=== PATIENT | female | born 1955 | race Caucasian/White ===

== ENCOUNTER → 2017-07-20 | Outpatient (CLI) | payer OTHER ==
--- NOTE | 2017-07-20 13:23 | US ---
EXAMINATION TYPE: US thyroid st tissue head/neck DATE OF EXAM: 07/20/2017 COMPARISON: Prior thyroid ultrasound November 17, 2009 CLINICAL HISTORY: E11.65 Type 2 diabetes, E04.2. Hyperglycemia GLAND SIZE: Right Lobe: 5.8 x 2.4 x 2.3 cm Overall Parenchyma: heterogenous Left Lobe: 5.7 x 2.8 x 2.6 cm Overall Parenchyma: heterogeneous Isthmus Thickness: 0.8 cm NODULES RIGHT: # of nodules measured on right: 3 1. 3.0 X 2.0 x 2.1 cm isoechoic mixed nodule at the lower pole with poorly defined margins; . This nodule is wider than tall and shows intranodular vascularity. Prior size: 2.2cm 2. 1.5 X 1.5 x 0.9 cm isoechoic mixed nodule at the mid pole with poorly defined margins; . This no dule is and shows intranodular vascularity. Prior size: Not measured 3. 1.3 X 1.3 x 0.9 cm isoechoic mixed nodule at the mid, medial pole with well-defined margins; . T his nodule is wider than tall and shows no intranodular vascularity. Prior size: Not measured LEFT: # of nodules measured on left: 1 1. 4.1 X 4.1 x 2.9 cm isoechoic mixed nodule at the lower pole with poorly defined margins; . This nodule is wider than tall and shows intranodular vascularity. Prior size: 4.1 cm ISTHMUS: # of nodules measured in the isthmus: 0 Bilateral neck scanned, no evidence of lymphadenopathy. Heterogeneous enlarged thyroid with largest nodules felt grossly stable in appearance from prior stud y. IMPRESSION: Redemonstration of heterogeneous enlarged thyroid with scattered nodules, dominant nodules are felt s table from prior accounting for technical differences.
[2017-07-20 13:50] LABS: T4, Free (Free Thyroxine) 1.36 ng/dL (0.78-2.19)
== END | disposition home or self-care (01) ==
LOC: RADUSWWP 12:15
PROVIDERS: ATTEND Internal Medicine Endocrinology, Diabetes & Metabolism
DX: E04.2 Nontoxic multinodular goiter (principal); E11.65 Type 2 diabetes mellitus with hyperglycemia
CPT/HCPCS: 36415; 76536; 84439; 84443; 84480

== ENCOUNTER → 2017-10-19 | Outpatient (CLI) | payer OTHER ==
--- NOTE | 2017-10-19 09:22 | CT ---
EXAMINATION TYPE: CT soft tissue neck wo con DATE OF EXAM: 10/19/2017 COMPARISON: NONE HISTORY: Non toxic multinodular goiter CT DLP: 851.00 mGycm CONTRAST: Patient injected with 0 mL of Isovue 300. TECHNIQUE: Axial images at 3 mm thick sections. Reconstructed images in the coronal plane and sagitt al plane are reviewed. FINDINGS: Limited CT sections are obtained the lung apices. The lung apices appear clear. CT neck: The torus tubarius and fossa of Rosenmuller are normal. Blade Worker spaces are normal. Para nasal sinuses and mastoid air cells are clear. Parotid glands appear normal and symmetrical. Submandibular glands, are normal. Parapharyngeal spac es are normal. No suspicious adenopathy is evident. The hypopharynx appears within normal limits. There is subtle asymmetry within the level of the vocal cord with slight bulging on the right compare d to left. This could be related to mild asymmetry within the Gantry. Consider direct visualization. Series 3 image 43. Thyroid is enlarged. There are scattered calcifications within the left lobe of the thyroid. There is some mild right tracheal deviation. No tracheal stenosis is evident. Degenerative changes are within the cervical spine. Lung apices within the [id number] are clear. T here is some mild prominence of the ascending thoracic aorta at the level of the aortic arch with a t ransverse dimension of 3.7 cm. IMPRESSIONS: 1. Prominent thyroid may be causing mild right tracheal deviation. 2. Subtle asymmetry within the vocal cord level may be artifact from asymmetry within the Gantry. Dir ect visualization may be useful to evaluate for underlying superficial mass
== END | disposition home or self-care (01) ==
LOC: RADCTMAIN 07:18
PROVIDERS: ATTEND Otolaryngology Plastic Surgery within the Head & Neck
DX: E04.2 Nontoxic multinodular goiter (principal)
CPT/HCPCS: 36415; 70490

== ENCOUNTER 2017-12-04 00:15 | Emergency (ER) | payer OTHER ==
--- NOTE | 2017-12-04 01:16 | ED ---
Extremity Problem HPI - General Chief complaint: Extremity Problem,Nontraumatic Stated complaint: thigh swelling Time Seen by Provider: 12/04/17 01:08 Source: patient, RN notes reviewed Mode of arrival: ambulatory Limitations: no limitations - History of Present Illness Initial comments: This is a 61-year-old female presents to the emergency department with chief complaint of left thigh swelling. Patient states that on October 28 Dr. Mota performed vascular surgery on her left thigh. She states that at the beginning of the week she noticed a bruise on her left medial thigh. She states that she did follow up with Dr. Mota on Tuesday and an ultrasound was performed. She states that this was normal. She states that since following up she has developed sharp pain to the area and has noticed swelling to her left thigh. She also reports feeling "lumps and knots" overlying the bruised area. She denies any recent falls, injuries or trauma. She states that she is concerned for a blood clot. Patient states that she is currently being treated for diverticulitis and is taking Cipro and Bactrim. Denies fevers or chills, chest pain or shortness of breath, abdominal pain, nausea or vomiting. - Related Data Home Medications Medication Instructions Recorded Confirmed Cholecalciferol [Vitamin D3] 5,000 unit PO DAILY 06/28/15 06/28/15 Cyanocobalamin (Vitamin B-12) 2,000 mcg PO DAILY 06/28/15 06/28/15 [Vitamin B12] Hydrochlorothiazide [Hydrodiuril] 25 mg PO DAILY 06/28/15 06/28/15 Omeprazole [PriLOSEC] 20 mg PO AC-BRKFST 06/28/15 06/28/15 Pravastatin Sodium [Pravachol] 10 mg PO HS 06/28/15 06/28/15 metFORMIN HCL 1,000 mg PO BID 06/28/15 06/28/15 Allergies Allergy/AdvReac Type Severity Reaction Status Date / Time No Known Allergies Allergy Verified 12/04/17 00:23 Review of Systems ROS Statement: Those systems with pertinent positive or pertinent negative responses have been documented in the HPI. ROS Other: All systems not noted in ROS Statement are negative. Past Medical History Past Medical History: Diabetes Mellitus History of Any Multi-Drug Resistant Organisms: None Reported Past Surgical History: Cholecystectomy, Tubal Ligation Additional Past Surgical History / Comment(s): vascular surgery. Past Psychological History: No Psychological Hx Reported Smoking Status: Never smoker Past Alcohol Use History: Occasional Past Drug Use History: None Reported General Exam - General Exam Comments Initial Comments: General: Awake and alert, well-developed; in no apparent distress. HEENT: Head atraumatic, normocephalic. Pupils are equal, round and reactive to light. Extraocular movements intact. Oropharynx moist without erythema or exudate. Neck: Supple. Normal ROM. Cardiovascular: Regular rate and rhythm. No murmurs, rubs or gallops. Chest symmetrical. Pedal pulses are 2+ equal and palpable bilaterally. Respiratory: Lungs clear to auscultation bilaterally. No wheezes, rales or rhonchi. Normal respiratory effort with no use of accessory muscles. Musculoskeletal: Normal ROM, no tenderness bilateral upper and lower extremities. Ambulating normally. Skin: Small area of ecchymosis noted to the medial left thigh. Area is firm on palpation. Tenderness is elicited with palpation. Sensation is intact. Neurological: Alert and oriented x3. CN II-XII grossly intact. Speech is fluent and answers are appropriate. No focal neuro deficits. Psychiatric: Normal mood and affect. No overt signs of depression or anxiety noted. Limitations: no limitations Course Vital Signs 12/04/17 00:21 Temperature 97.6 F Pulse Rate 94 Respiratory 16 Rate Blood Pressure 132/83 O2 Sat by Pulse 99 Oximetry Medical Decision Making - Medical Decision Making This is a 61-year-old female who presents to the emergency department with chief complaint of left thigh swelling. Patient had vascular surgery performed last month. She states that her left thigh has developed a bruise, swelling and "lumps" this week. A venous doppler was obtained and revealed no evidence for an acute dvt. It did, however, reveal evidence for superficial thrombophlebitis. vital signs are stable patient is in no acute distress. recommended warm compresses and nsaids. patient does state that she has a prescription for ibuprofen 800 mg. patient will be discharged home at this time. she is in agreement with plan and voices understanding. all questions were answered. - Radiology Data Radiology results: report reviewed Ultrasound venous Doppler duplex left lower extremity: negative for DVT. Left GSC is dilated and thrombosed throughout left thigh; at the patient's area of focal pain and redness there is a heterogenous soft tissue with noncompressible superficial vessels, compatible with superficial thrombophlebitis Disposition Clinical Impression: Superficial thrombophlebitis Disposition: HOME SELF-CARE Condition: Good Instructions: Superficial Thrombophlebitis (ED) Additional Instructions: Please apply warm compresses frequently throughout the day and take ibuprofen 600 mg every 6 hours for the next couple of days. Please follow up with primary care provider within 1-2 days. Return to emergency department if symptoms should worsen or any concerns arise. Is patient prescribed a controlled substance at d/c from ED?: No Referrals: Dee Rojas MD [Primary Care Provider] - 1-2 days Time of Disposition: 02:17
--- NOTE | 2017-12-04 02:01 | US ---
EXAMINATION TYPE: US venous doppler duplex LE LT DATE OF EXAM: 12/04/2017 1:50 AM COMPARISON: NONE CLINICAL HISTORY: Pain. pt had gsv stripped October 28, 2017; new onset of left thigh pain and redness at the medial mid left thigh SIDE PERFORMED: left TECHNIQUE: The lower extremity deep venous system is examined utilizing real time linear array sonog jovanny with graded compression, doppler sonography and color-flow sonography. VESSELS IMAGED: External Iliac Vein (EIV) Common Femoral Vein Deep Femoral Vein Greater Saphenous Vein * Femoral Vein Popliteal Vein Small Saphenous Vein * Proximal Calf Veins (* superficial vessels) Left Leg: neg for LLE dvt; left gsv is dilated and thrombosed throughout left thigh; at the patient' s area of focal pain and redness there is a heterogeneous soft tissue with non-compressible superfici al vessels, compatible with superficial thrombophlebitis. IMPRESSION: No evidence of deep venous thrombosis in the left leg. There is evidence of superficial v ein thrombosis in the long saphenous vein which is mostly occluded.
[2017-12-04 02:39] VITALS: BP 140/82; PULSE 83; RESP 18; TEMP 98.1
== END 2017-12-04 02:38 | disposition home or self-care (01) ==
LOC: EC 00:15
DX: I80.02 Phlebitis and thrombophlebitis of superficial vessels of left lower extremity (principal); E11.9 Type 2 diabetes mellitus without complications; Z79.84 Long term (current) use of oral hypoglycemic drugs; Z79.899 Other long term (current) drug therapy
CPT/HCPCS: 99283

== ENCOUNTER → 2017-12-06 | Outpatient (CLI) | payer OTHER ==
--- NOTE | 2017-12-06 16:16 | CT ---
EXAMINATION TYPE: CT abdomen pelvis w con DATE OF EXAM: 12/06/2017 COMPARISON: 06/22/2009 HISTORY: Left Flank pain CT DLP: 1769.30 mGycm CONTRAST: CT scan of the abdomen and pelvis is performed with Oral Contrast and with IV Contrast, patient injec fahran with 80 mL of Isovue 300. FINDINGS: LUNG BASES-: No visible nodule. No infiltrate. LIVER/GB: Cholecystectomy clips in place. No space occupying hepatic lesion. Biliary tree is of no rmal caliber. PANCREAS: No inflammation. No distinct mass. SPLEEN: No splenic enlargement. No lesion seen. ADRENALS: No nodule. No thickening. KIDNEYS/BLADDER: No hydronephrosis. No nephrolithiasis. No distinct renal mass. Urinary bladder g rossly unremarkable. BOWEL: Thickening of the terminal ileum without surrounding inflammatory change may reflect terminal ileitis or Crohn's disease. Normal appendix. Small sliding-type hiatal hernia. GENITAL ORGANS: No gross abnormality. LYMPH NODES: No greater than 1cm abdominal or pelvic lymph nodes are appreciated. AORTA: No significant abnormality. OSSEOUS STRUCTURES: No significant abnormality is seen. OTHER: No significant additional abnormality is seen. IMPRESSION: 1. Correlate for Crohn's disease.
== END | disposition home or self-care (01) ==
LOC: RADCTMAIN 13:37
PROVIDERS: ATTEND Nurse Practitioner
DX: R10.32 Left lower quadrant pain (principal)
CPT/HCPCS: 82565; 84520; 74177; Q9967

== ENCOUNTER → 2017-12-26 | Outpatient (CLI) | payer OTHER ==
--- NOTE | 2017-12-26 09:15 | US ---
EXAMINATION TYPE: US abdomen limited DATE OF EXAM: 12/26/2017 COMPARISON: CT abdomen and pelvis December 06, 2017 CLINICAL HISTORY: M54.5 Low Back Pain. Left lower back pain x 1 month, history of cholecystectomy EXAM MEASUREMENTS: Liver Length: 15.5 cm Gallbladder Wall: surgically absent CBD: 0.4 cm Right Kidney: 11.5 x 4.9 x 4.6 cm Pancreas: limited by overlying midline bowel gas Liver: wnl Gallbladder: surgically absent Evidence for sonographic Peck's sign: no CBD: visualized portions wnl, limited by overlying bowel gas Right Kidney: wnl Scanned left lower back at patient's area of concern: no mass, fluid collection or other abnormalit y seen by ultrasound at this time Pancreas is suboptimally evaluated on images saved. Visualized portion of liver slightly heterogeneou s without obvious mass or ductal dilatation. Gallbladder is surgically absent. Towards end of exam sc anning left lower back at area of concern shows no worrisome solid or cystic mass or fluid collection on images saved. Findings correlate with recent CT. IMPRESSION: As above.
== END | disposition home or self-care (01) ==
LOC: RADUSMAIN 07:42
PROVIDERS: ATTEND Family Medicine
DX: M54.5 Low back pain (principal); Z90.49 Acquired absence of other specified parts of digestive tract
CPT/HCPCS: 76705

== ENCOUNTER → 2018-01-20 | Outpatient (CLI) | payer OTHER ==
--- NOTE | 2018-01-20 18:57 | CT ---
EXAMINATION TYPE: CT angio abdomen pelvis DATE OF EXAM: 01/20/2018 HISTORY: Vasculitis limited to the skin, Lt flank swelling, swelling and bruising to Lt genital area post varicose vein procedure CT DLP: 1065.8mGycm Automated Exposure Control for Dose Reduction was Utilized. CONTRAST: CT scan of the abdomen and pelvis is performed with IV Contrast, patient injected with 125 mL of Isov ue 370. COMPARISON: None FINDINGS: There are 3-D post processed images. Lung bases are clear. There is no pleural effusion. Abdominal aorta has normal size and contour. Ther e is no evidence of aortic aneurysm or dissection. There is wide patency of the celiac artery and sup erior mesenteric artery. There is bilateral white patency of the renal arteries. Liver spleen pancreas appear normal. There are clips from cholecystectomy. There is hiatal hernia. Ki dneys show satisfactory contrast opacification. There is no hydronephrosis. There is no retroperitone al adenopathy. There is no adrenal mass. There is no intestinal wall thickening. There are no dilated loops. Uterus is retroverted. Lumbar spi ne appears intact. There is no compression fracture. There is no ascites. There is subcutaneous edema in the left pubic region. No discrete fluid collection is seen. There is no evidence of an abscess. The appendix appears normal. There is mild subcutaneous edema that is partly visualized over the left lateral lower abdomen. .IMPRESSION: Negative CT angiogram of the abdomen. Hiatal hernia. Left pubic subcutaneous edema. Mild left lateral abdominal subcutaneous edema.
== END | disposition home or self-care (01) ==
LOC: RADCTMAIN 17:25
PROVIDERS: ATTEND Family Medicine
DX: K44.9 Diaphragmatic hernia without obstruction or gangrene (principal); R60.9 Edema, unspecified
CPT/HCPCS: 74174; Q9967

== ENCOUNTER → 2018-03-15 | Outpatient (CLI) | payer OTHER ==
--- NOTE | 2018-03-16 09:46 | CT ---
EXAMINATION TYPE: CT abdomen pelvis w con DATE OF EXAM: 03/15/2018 HISTORY: LLQ pain post op CT DLP: 1952.8mGycm Automated Exposure Control for Dose Reduction was Utilized. CONTRAST: CT scan of the abdomen and pelvis is performed with IV Contrast, patient injected with 80 mL of Isovu e 300. COMPARISON: 12/06/2017 and 01/20/2018 CT abdomen and pelvis and CT [employer] abdomen and pelvis respect ively. FINDINGS: LUNG BASES: Unremarkable. LIVER/GB: No significant abnormality is appreciated. Gallbladder is surgically absent with cholecyste ctomy clips in the gallbladder fossa. PANCREAS: No significant abnormality is seen. No ductal dilatation. SPLEEN: No significant abnormality is seen. ADRENALS: No significant abnormality is seen. No thickening or focal nodule. KIDNEYS: Kidneys enhance and excrete symmetrically. No hydronephrosis. BOWEL: There is submucosal fat deposition within the terminal ileum such as on series 3 image 53. Ter olamide ileum wall are also thickened measuring up to 8 mm. There are scattered nonenlarged right lower quadrant lymph nodes. Findings are concerning for sequela of chronic inflammatory disease such as Cr ohn's disease given involvement of the terminal ileum and no appreciable involvement of the rectum. N o evidence of bowel obstruction. LYMPH NODES: No greater than 1cm abdominal or pelvic lymph nodes are appreciated. Few minimally promi nent but nonenlarged left superficial inguinal lymph nodes are seen on coronal series 7 image 32 and 33. OSSEOUS STRUCTURES: Punctate sclerotic focus within the sacrum may represent a bone island. Minimal degenerative changes of the spine are noted. OTHER: There remains a minimal amount of subcutaneous fat stranding overlying the left flank subcutan eous soft tissues, however in light of the patient's history of foreign body removal at this location there is a thin hyperdense linear density is seen on coronal series 7 image 71. Fragment of retained foreign body or blood products along the removal tract are possible. No fluid collection to suggest hematoma or abscess is present. Some minimal residual fat stranding is also seen within the left groi n such as on series 3 image 90, improved from the prior. There is diastases recti and a very small fat filled umbilical hernia. IMPRESSION: 1. Linear hyperdensity along the site of removed foreign body within the left flank. This is favored to represent blood products along the tract, however small fragments of retained foreign body are pos sible. Correlate with catheter appearance post removal (intact or fragmented). Improved degree of lef t flank and left groin inflammatory fat stranding. 2. Small hiatal hernia. 3. Redemonstration of submucosal fat deposition and thickening of the terminal ileum suggesting seque la of chronic inflammatory or infectious bowel disease, most typically Crohn's disease at this locati on.
== END ==
LOC: RADCTMAIN 15:47
PROVIDERS: ATTEND Family Medicine
DX: K44.9 Diaphragmatic hernia without obstruction or gangrene (principal); K63.89 Other specified diseases of intestine
CPT/HCPCS: 82565; 84520; 74177; 36415; Q9967

== ENCOUNTER 2018-03-24 06:56 | Day surgery (SDC) | payer OTHER ==
[2018-03-21 15:13] VITALS: BMI 35.7
[~2018-03-24 06:56] MED LIST: LACTATED RINGERS 1,000 ML IV SCH; LIDOCAINE 1% 20 ML VIAL (10MG/ML) FOR IV START INTRADERMA PRN
[2018-03-24 07:27] VITALS: RESP 16; TEMP 98.2
[2018-03-24 07:30] LABS: Glucose,Whole Blood 173 mg/dL (75-99)
[2018-03-24] MEDS ORDERED: PROPOFOL 10 MG/ML 20 ML VIAL IV ONE (08:02)
--- NOTE | 2018-03-24 08:26 | P.PCN ---
Date of Procedure: 03/24/18 Procedure(s) Performed: Brief history: Patient is a pleasant 62-year-old white female, scheduled for an elective upper endoscopy as well as colonoscopy as a part of evaluation of gastric esophageal reflux disease and iron deficiency anemia. Recently she had a CT of the abdomen and pelvis done that showed thickening of the terminal ileum and possibility of inflammatory bowel disease was suggested by the radiologist. Procedure performed: Esophagogastroduodenoscopy with biopsy Colonoscopy with biopsy Preoperative diagnosis: GERD Iron deficiency anemia Abnormal CAT scan of the abdomen showing thickening of the terminal ileum. Anesthesia: MAC Procedure: After informed consent was obtained from the patient was brought into the endoscopy unit and IV sedation was administered by anesthesia under continuous monitoring. Initially upper endoscopy was done. The Olympus GF 160 video endoscope was inserted inserted into the mouth and esophagus intubated without any difficulty and was gradually advanced into the stomach and duodenum and carefully examined. The bulb and second part of the duodenum appeared normal. The scope was then withdrawn into the stomach adequately insufflated with air and upon careful examination the antrum had mild gastritis and biopsies were done from this area. There were multiple polyps noted in the gastric body measuring between 5 to millimeters to 1.5 cm in size and some of which were biopsied. The cardia and fundus appeared normal. The scope was then withdrawn into the esophagus. The GE junction was located at 38 cm to the incissmall sliding Hiatal hernia noted. appeared regular with no erythema erosions or ulcerations. Rest of the esophagus appeared normal. Patient tolerated the procedure well. At this time the patient continued to remain sedation. Initial digital rectal examination was normal. Olympus CF 160 video colonoscope was then inserted into the rectum and gradually advanced to the cecum without any difficulty. Careful examination was performed as the scope was gradually being withdrawn. The prep was excellent. Terminal ileum was intubated and at least 10 cm intubated and appeared normal. The cecum, ascending colon, was normal. There was mild patchy areas of erythema noted in the transverse colon and descending colon with normal appearing intervening mucosa and multiple biopsies were done from this area. Rest of the transverse colon, descending colon, sigmoid colon and rectum appeared normal. Retroflexion was performed in the rectum and no lesions were noted. Patient tolerated the procedure well. Impression: 1. Upper endoscopy revealed multiple gastric polyps and mild gastritis 2. Colonoscopy revealed mild patchy areas of erythema in the descending colon and transverse colon with normal appearing intervening mucosa consistent with colitis. Recommendations: Findings of this examination were discussed with the patient as well as her family. She was advised to follow with the biopsy results. She'll be seen in office in 2-3 weeks
[2018-03-24 08:45] VITALS: BP 136/82; PULSE 75
== END 2018-03-24 09:28 | disposition home or self-care (01) ==
LOC: ORWHC2ENDO 06:56
PROVIDERS: ATTEND Internal Medicine Gastroenterology
DX: K29.50 Unspecified chronic gastritis without bleeding (principal); K31.7 Polyp of stomach and duodenum; L92.8 Other granulomatous disorders of the skin and subcutaneous tissue; K52.9 Noninfective gastroenteritis and colitis, unspecified; K21.9 Gastro-esophageal reflux disease without esophagitis; I10 Essential (primary) hypertension; E11.9 Type 2 diabetes mellitus without complications; E07.9 Disorder of thyroid, unspecified; Z79.84 Long term (current) use of oral hypoglycemic drugs; Z79.1 Long term (current) use of non-steroidal anti-inflammatories (NSAID); Z79.899 Other long term (current) drug therapy
CPT/HCPCS: 88305; 45380; 43239; J2704

== ENCOUNTER → 2018-11-15 | Outpatient (CLI) | payer OTHER ==
--- NOTE | 2018-11-15 09:36 | US ---
EXAMINATION TYPE: US thyroid st tissue head/neck DATE OF EXAM: 11/15/2018 COMPARISON: NONE CLINICAL HISTORY: E04.2 goiter. GLAND SIZE: Right Lobe: 6.0 x 2.4 x 2.8 cm Overall Parenchyma: grossly heterogeneous Left Lobe: 6.4 cm Overall Parenchyma: grossly heterogeneous Isthmus Thickness: 0.9 cm NODULES RIGHT: # of nodules measured on right: 0 Technologist unable to appreciate distinct nodule in grossly heterogeneous tissue. LEFT: # of nodules measured on left: 1 1. 3.9 x 2.9 x cm 4.2 solid nodule at the mid pole with poorly defined margins. This nodule is wid er than tall and shows intranodular vascularity. Prior size: 4.1 x 4.1 x 2.9 cm ISTHMUS: # of nodules measured in the isthmus: 0 Bilateral neck scanned, no evidence of lymphadenopathy. IMPRESSION: Heterogeneous tissue suggests thyroiditis. Left thyroid 4.2 cm thyroid nodule is stable.
== END | disposition home or self-care (01) ==
LOC: RADUSWWP 07:42
PROVIDERS: ATTEND Internal Medicine Endocrinology, Diabetes & Metabolism
DX: E04.2 Nontoxic multinodular goiter (principal)
CPT/HCPCS: 76536

== ENCOUNTER → 2020-07-09 | Outpatient (CLI) | payer BC ==
[2020-07-10 01:50] LABS: % Iron Saturation 16.24 (12.00-45.00); African American GFR (CKD) 45.3 (60.0-200.0); Albumin 4.6 g/dL (3.80-4.90); Albumin/Globulin Ratio 1.84 (1.60-3.17); BUN/Creat Ratio 17.86 Ratio (12.00-20.00); Calcium 9.6 mg/dL (8.7-10.3); Globulin 2.5 g/dL (1.6-3.3); Non-African American GFR(CKD) 39.1 (60.0-200.0); Potassium 4.4 mmol/L (3.5-5.5); Total Bilirubin 0.5 mg/dL (0.2-1.2); Total Protein 7.1 g/dL (6.2-8.2)
== END | disposition home or self-care (01) ==
LOC: LABWHC1 14:17
PROVIDERS: ATTEND Internal Medicine Endocrinology, Diabetes & Metabolism
DX: E11.65 Type 2 diabetes mellitus with hyperglycemia (principal)
CPT/HCPCS: 36415; 80053; 83540; 83550

== ENCOUNTER → 2021-11-19 | Outpatient (CLI) | payer MEDICARE, BC ==
--- NOTE | 2021-11-20 05:11 | MR ---
EXAMINATION TYPE: MR ankle RT wo/w con DATE OF EXAM: 11/19/2021 COMPARISON: None HISTORY: Rt ankle instability, lateral/posterior swelling or lump CONTRAST: Standard multiplanar, multisequence MRI departmental protocol images were obtained without contrast a nd with 10 mL intravenous Gadavist gadolinium contrast. Ankle mortise is anatomic. No fracture seen. Ankle joint spaces are fairly well-maintained. There is mild ankle joint effusion. The medial and lateral flexor tendons are intact. There is plantar calcane al spurring. Achilles tendon is intact. Plantar fascia is intact. There is mild subcutaneous edema ov er the lateral malleolus. The collateral ligaments appear intact. I see no focal bone destruction. No fracture. IMPRESSION: Ankle joint and subtalar joint effusion suggestive of some nonspecific synovitis. Subcutaneous edema. No evidence of ligament or tendon tear. Calcaneal spurring.
== END | disposition home or self-care (01) ==
LOC: RADMRIMAIN 07:29
PROVIDERS: ATTEND Podiatrist Foot & Ankle Surgery
DX: M25.371 Other instability, right ankle (principal); M25.471 Effusion, right ankle; M77.31 Calcaneal spur, right foot
CPT/HCPCS: 73723; A9585

== ENCOUNTER → 2021-12-25 | Outpatient (CLI) | payer MEDICARE, BC ==
--- NOTE | 2021-12-25 14:10 | US ---
EXAMINATION TYPE: US thyroid st tissue head/neck DATE OF EXAM: 12/25/2021 COMPARISON: NONE CLINICAL HISTORY: E04.2 MULTINODULAR GOITER. GLAND SIZE: Right Lobe: 8.1 x 2.9 x 2.8 Overall Parenchyma: grossly heterogeneous Left Lobe: 6.6 x 3.4 x 3.2 Overall Parenchyma: grossly heterogeneous Isthmus Thickness: 0.6m NODULES RIGHT: # of nodules measured on right: 0 LEFT: # of nodules measured on left: 1. 4.1x 2.9 x 3.9, solid or almost completely solid, isoechoic nodule, which is wider than tall, wit h ill-defined margins, without echogenic foci. Prior size: 3.9x 2.9x 4.2m ISTHMUS: # of nodules measured in the isthmus: 0 Bilateral neck scanned, no evidence of lymphadenopathy. IMPRESSION: 1. Mildly suspicious nodule within the left lobe thyroid. Fine-needle aspiration is recommended. 2. Thyromegaly bilateral thyroid lobes. 2017 ACR TI-RADS LEVEL: TR-RADS 3 - Mildly Suspicious: Follow if > 1.5 cm, FNA if > 2.5 cm *Highest TI-RADS level nodule reported
== END | disposition home or self-care (01) ==
LOC: RADUSWWP 11:50
PROVIDERS: ATTEND Internal Medicine Endocrinology, Diabetes & Metabolism
DX: E04.2 Nontoxic multinodular goiter (principal)
CPT/HCPCS: 76536

== ENCOUNTER → 2021-12-25 | Outpatient (CLI) | payer MEDICARE, BC ==
--- NOTE | 2021-12-28 09:38 | BD ---
EXAMINATION TYPE: Axial Bone Density DATE OF EXAM: 12/25/2021 COMPARISON: NONE CLINICAL HISTORY: 66 years year old Female. ICD-10 CODE: Z78.0 MENOPAUSAL STATE [id number] Weight: 212 FRAX RISK QUESTIONS: Alcohol (3 or more units per day): NO Family History (Parent hip fracture): NO Glucocorticoids (More than 3mos): NO History of Fracture in Adulthood: NO Secondary Osteoporosis: 1. Type 1 Diabetes: NO 2. Hyperthyroidism: NO 3. Menopause before 45: NO 4. Malnutrition: NO 5. Chronic liver disease: NO Rheumatoid Arthritis: NO Current Tobacco Use: NO RISK FACTORS HISTORY OF: Hip Fracture (Right/Left): NO Spine Fracture: NO History of Wrist Fracture: NO Surgery to Spine/Hip(right/left)/Wrist (right/left): NO Family History of Osteoporosis: NO Active: YES Diet low in dairy products/other sources of calcium: YES Postmenopausal woman: YES Take estrogen and/or progesterone medications: NO Lost more than 2 inches in height since high school: NO Frequent falls: NO Poor Health: NO Hyperparathyroidism: NO Adrenal Insufficiency: NO MEDICATIONS: Prednisone or other steroids: NO Thyroid Medications: NO Osteoporosis Medications: NO Additional Medications: METFORMIN, BP MEDS, IRON, VIT B12, VIT D, REFLUX MEDS, CHOLESTEROL MEDS, EXAM MEASUREMENTS: Bone mineral densitometry was performed using the [employer] System. Bone mineral density as measured about the Lumbar spine is: ----- L1-L4(G/cm2): 1.304 T Score Values are as follows: ----- L1: 0.9 ----- L2: 0.7 ----- L3: 0.4 ----- L4: 1.9 ----- L1-L4: 1.0 BASELINE STUDY Bone mineral density about the R hip (g/cm2): 0.979 Bone mineral density about the L hip (g/cm2): 0.903 T Score values are as follows: -----R Neck: -0.4 -----L Neck: -1.0 -----R Total: 0.0 -----L Total: -0.1 BASELINE STUDY FRAX%s: The graph provided illustrates a 8.0% chance for a major osteoporotic fx and a 0.7% chance fo r the hips probability for fx in 10 years time. IMPRESSION: Normal (Values between +1 and -1 indicate normal bone mass). Consider repeating this study in 5 year s or sooner if there is some new clinical indication. NOTE: T-SCORE=SD OF THE YOUNG ADULT MEAN.
--- NOTE | 2021-12-28 18:45 | MM ---
Reason for Exam: Screening (asymptomatic). Last mammogram was performed 3 year(s) and 8 month(s) ago. Patient History: Menarche at age 11. First Full-Term at age 19. Postmenopausal. 10/11/2013, MG stereo VAD BX LT - 2 on the Left side. Risk Values: Rosy 5 year model risk: 1.8%. NCI Lifetime model risk: 5.9%. Prior Study Comparison: 05/14/2010 Screening Mammogram, [facility]. 04/12/2018 Bilateral Screening Mammogram, [facility]. Tissue Density: There are scattered fibroglandular densities. Findings: Analyzed By CAD. Chronic nodularity on the right. Unchanged prominent lymph node left axilla with adjacent small group of coarse calcification. Microclip left breast from prior biopsy. Benign bilateral vascular calcifications. No significant change from prior exams. Overall Assessment: Benign, BI-RAD 2 Management: Screening Mammogram of both breasts in 1 year. 1. Patient should continue monthly self breast exams. 2. A clinical breast exam by your physician is recommended on an annual basis. 3. This exam should not preclude additional follow-up of suspicious palpable abnormalities. Electronically signed and approved by: Mayra Price M.D. Radiologist
== END | disposition home or self-care (01) ==
LOC: RADMAMWWP 11:53
PROVIDERS: ATTEND Family Medicine
DX: Z12.31 Encounter for screening mammogram for malignant neoplasm of breast (principal); Z78.0 Asymptomatic menopausal state
CPT/HCPCS: 77063; 77067; 77080

== ENCOUNTER 2022-11-05 10:11 | Day surgery (SDC) | payer MEDICARE, BC ==
[~2022-11-05 10:11] MED LIST changes: +LIDOCAINE 1% (10MG/ML) FOR IV START INTRADERMA PRN; -LIDOCAINE 1% 20 ML VIAL (10MG/ML) FOR IV START INTRADERMA PRN
[2022-11-05 10:34] VITALS: TEMP 98
[2022-11-05 10:43] LABS: Glucose,Whole Blood 190 mg/dL (70-110)
[2022-11-05] MEDS ORDERED: LIDOCAINE 2% INJ 20 MG/ML (2 ML VIAL) ONE (11:28)
[2022-11-05] MEDS ORDERED: PROPOFOL 10 MG/ML 20 ML VIAL IV ONE (11:28)
--- NOTE | 2022-11-05 11:36 | P.PCN ---
Date of Procedure: 11/05/22 Procedure(s) Performed: BRIEF HISTORY: Patient is a 66-year-old, pleasant, white female scheduled for an upper endoscopy as a part of evaluation of epigastric pain for the last 1 year duration. She was on omeprazole 20 mg daily which was increased to 40 mg daily and still remains symptomatic. Recently was started on Carafate 1 g 4 times daily but she had side effects and hence stop the medications. He scheduled for an upper endoscopy to evaluate further. PROCEDURE PERFORMED: Esophagogastroduodenoscopy with biopsy. PREOPERATIVE DIAGNOSIS: GERD and history of epigastric pain. IV sedation per anesthesia. PROCEDURE: After informed consent was obtained, the patient was brought into the endoscopy unit. IV sedation was administered by Anesthesia under continuous monitoring. Initially the Olympus GIF-140 video endoscope was inserted into the mouth. Esophagus intubated without any difficulty. It was gradually advanced into the stomach and duodenum and carefully examined. The bulb and the second part of the duodenum appeared normal. The scope at this time was withdrawn to the stomach, adequately insufflated with air, and upon careful examination, mucosa of the antrum appeared normal. There are multiple gastric polyps noted in the body and fundus of stomach measuring between 5 mm to 1.5 cm in size which were biopsied. Rest of the, body, cardia and the fundus appeared normal. The scope was then withdrawn into the esophagus. The GE junction was located at 39 cm from the incisors. Small sliding type hiatal hernia noted. The esophagus appeared normal. There were no erosions or ulcerations seen and biopsies were done from the distal esophagus and the patient tolerated the procedure well. IMPRESSION: 1. Multiple gastric polyps in the body and fundus of the stomach between 5 mm to 1.5 cm in size status post multiple biopsies. 2. Small hiatal hernia but no evidence of esophagitis. RECOMMENDATIONS: The findings of this examination were discussed with the patient or less her family. She was advised to follow with the biopsy results. In the meantime she will continue with omeprazole 40 mg daily and follow antireflux measures and she'll be seen in office in 2-3 weeks..
[2022-11-05 11:54] VITALS: RESP 16
[2022-11-05 12:01] VITALS: BP 142/96; PULSE 85
== END 2022-11-05 12:19 | disposition home or self-care (01) ==
LOC: ORWHC2ENDO 10:11
PROVIDERS: ATTEND Internal Medicine Gastroenterology
DX: K25.9 Gastric ulcer, unspecified as acute or chronic, without hemorrhage or perforation (principal); K31.7 Polyp of stomach and duodenum; K21.9 Gastro-esophageal reflux disease without esophagitis; K44.9 Diaphragmatic hernia without obstruction or gangrene; I10 Essential (primary) hypertension; E78.5 Hyperlipidemia, unspecified; E11.9 Type 2 diabetes mellitus without complications; Z79.84 Long term (current) use of oral hypoglycemic drugs; Z79.899 Other long term (current) drug therapy; Z88.1 Allergy status to other antibiotic agents
CPT/HCPCS: 88305; 88342; 43239; J2704; J2001

== ENCOUNTER 2023-09-07 12:47 | Day surgery (SDC) | payer MEDICARE, BC ==
--- NOTE | 2023-09-07 14:31 | US ---
ULTRASOUND GUIDED FNA THYROID BIOPSY: CLINICAL HISTORY: Request for biopsy of 4.1 similar left thyroid nodule FINDINGS: The procedure was explained to the patient. The risks, complications, benefits and alternatives were discussed and any questions were answered. Informed consent was obtained. Patient was placed supin e on the ultrasound table and prepped and draped in the usual sterile fashion. Utilizing a 25 gauge needle, five passes were made into the requested left thyroid nodule. Patient was stable throughout the procedure. Pathology is pending. All elements of maximal barrier technique were utilized. IMPRESSION: 1. Successful ultrasound guided FNA thyroid biopsy.
[2023-09-07 16:01] VITALS: BP 133/84; PULSE 87; RESP 16; TEMP 98.1
== END 2023-09-07 14:25 | disposition home or self-care (01) ==
LOC: RADPROMAIN 12:47
PROVIDERS: ATTEND Internal Medicine Endocrinology, Diabetes & Metabolism
DX: E04.1 Nontoxic single thyroid nodule (principal)
CPT/HCPCS: 10005; 88173; 88305

== ENCOUNTER → 2023-09-07 | Outpatient (CLI) | payer MEDICARE, BC ==
[2023-09-07 16:20] LABS: ALT 17 U/L (8-44); AST 11 U/L (13-35); Albumin 4.2 g/dL (3.8-4.9); Albumin/Globulin Ratio 1.45 Ratio (1.60-3.17); Alkaline Phosphatase 95 U/L (41-126); BUN/Creat Ratio 17.38 Ratio (12.00-20.00); Blood Urea Nitrogen 22.6 mg/dL (9.0-27.0); Calcium 9.7 mg/dL (8.7-10.3); Carbon Dioxide 23.7 mmol/L (21.6-31.8); Chloride 104 mmol/L (96-109); Chol/HDL Ratio 4.82 Ratio; Globulin 2.9 g/dL (1.6-3.3); Glucose 160 mg/dL (70-110); LDL Cholesterol,Calculated 102.8 mg/dL (0.0-131.0); Potassium 4.2 mmol/L (3.5-5.5); Sodium 142 mmol/L (135-145); Total Bilirubin 0.3 mg/dL (0.3-1.2); Total Protein 7.1 g/dL (6.2-8.2)
[2023-09-07 19:18] LABS: Urine Creatinine 65.3 mg/dL (28.0-217.0)
--- NOTE | 2023-09-08 12:16 | US ---
EXAMINATION TYPE: US thyroid st tissue head/neck DATE OF EXAM: 09/07/2023 COMPARISON: 2021, hx thyroid biopsy 2009 right and left nodule CLINICAL INDICATION: Female, 67 years old with history of E04.2 NONTOXIC MULTINODULAR GOITER; Patient is scheduled for her thyroid biopsy TODAY at 2pm for left side nodule per patient. GLAND SIZE: Right Lobe: 6.5 x 3.1 x 3.0 cm Overall Parenchyma: heterogeneous Left Lobe: 5.9 x 3.7 x 4.1 cm Overall Parenchyma: heterogeneous Isthmus Thickness: 1.2 cm NODULES RIGHT: # of nodules measured on right: 2 1. 1.8 X 1.3 x 1.8 cm, upper near isthmus, mixed cystic and solid, hypoechoic nodule, which is wide r than tall, with smooth margins, without echogenic foci. TR 3 nodule. 2. 3.9 X 2.5 x 3.0 cm, mid , solid or almost completely solid, hypoechoic nodule, which is wider th an tall, with ill-defined margins, without echogenic foci. TR 4 nodule. LEFT: # of nodules measured on left: 3 1. 1.7 X 1.1 x 1.4 cm, upper lateral, cystic or almost completely cystic, very hypoechoic nodule, w hich is wider than tall, with smooth margins, without echogenic foci. TR 3 nodule. 2. 4.4 X 3.4 x 3.7 cm, mid mid, solid or almost completely solid, hypoechoic nodule, which is wide r than tall, with smooth margins, without echogenic foci. TR 4 nodule Prior size: 4.1 x 2.9 x 3.9 cm 3. 1.5 X 1.0 x 1.4 cm, lower medial, mixed cystic and solid, hypoechoic nodule, which is wider than tall, with smooth margins, without echogenic foci. TR 3 nodule ISTHMUS: # of nodules measured in the isthmus: 1 1. 1.3 X 1.1 x 1.4 cm solid or almost completely solid, hypoechoic nodule, which is wider than tall , with smooth margins, without echogenic foci. TR 4 nodule. Bilateral neck scanned, no evidence of lymphadenopathy. IMPRESSION: 1. Thyromegaly with heterogeneous thyroid tissue suggestive of thyroiditis. 2. Multinodular thyroid. There are a couple new nodules as discussed above. See below for ACR guideli jean. 2017 ACR TI-RADS LEVEL: TR-RADS 4 - Moderately Suspicious: Follow if > 1 cm, FNA if > 1.5 cm *Highest TI-RADS level nodule reported
== END | disposition home or self-care (01) ==
LOC: RADUSWWP 10:24
PROVIDERS: ATTEND Internal Medicine Endocrinology, Diabetes & Metabolism
DX: E04.2 Nontoxic multinodular goiter (principal); E11.65 Type 2 diabetes mellitus with hyperglycemia
CPT/HCPCS: 36415; 76536; 80053; 80061; 82043; 82570; 83036; 84439; 84443

== ENCOUNTER → 2023-09-07 | Outpatient (CLI) | payer MEDICARE, BC ==
--- NOTE | 2023-09-08 09:03 | MM ---
Reason for Exam: Screening (asymptomatic). Last mammogram was performed 1 year(s) and 9 month(s) ago. Patient History: Menarche at age 11. First Full-Term at age 19. Postmenopausal. 10/11/2013, MG stereo VAD BX LT - 2 on the Left side. Risk Values: Rosy 5 year model risk: 1.8%. Prior Study Comparison: 05/14/2010 Screening Mammogram, [facility]. 04/12/2018 Bilateral Screening Mammogram, [facility]. 12/25/2021 Bilateral MG 3D screening mammo w/cad, [facility]. Tissue Density: The breasts are heterogeneously dense, which may obscure small masses. Findings: Analyzed By CAD. There is no suspicious group of microcalcifications or new suspicious mass in either breast. A previous biopsy clip marker left breast. Chronic appearing nodularity bilateral breasts. Benign appearing calcifications. There is no suspicious group of microcalcifications or new suspicious mass in either breast. A previous biopsy clip marker left breast. Chronic appearing nodularity bilateral breasts. Benign appearing calcifications. There is marked increase in size in the left axillary lymph node now measuring 2.1 x 1.5 cm. Overall Assessment: Incomplete: need additional imaging evaluation, BI-RAD 0 Management: Diagnostic Breast Ultrasound of the left breast. . Patient should continue monthly self-breast exams. A clinical breast exam by your physician is recommended on an annual basis. This exam should not preclude additional follow-up of suspicious palpable abnormalities. Note on Rosy scores and lifetime risk: 1. A Rosy score greater than 3% is considered moderate risk. If this is the case, consider specialist referral to assess eligibility for a risk reducing agent. 2. If overall lifetime risk for the development of breast cancer is 20% or higher, the patient may qualify for future screening with alternating mammogram and breast MRI. Electronically signed and approved by: Austin Elias M.D. Radiologis
== END | disposition home or self-care (01) ==
LOC: RADMAMWWP 10:26
PROVIDERS: ATTEND Family Medicine
DX: Z12.31 Encounter for screening mammogram for malignant neoplasm of breast (principal); Z78.0 Asymptomatic menopausal state
CPT/HCPCS: 77063; 77067

== ENCOUNTER → 2023-09-19 | Outpatient (CLI) | payer MEDICARE, BC ==
--- NOTE | 2023-09-19 09:17 | USB ---
Reason for Exam: Additional evaluation requested from abnormal screening. Patient History: Menarche at age 11. First Full-Term at age 19. Postmenopausal. 10/11/2013, MG stereo VAD BX LT - 2 on the Left side. Risk Values: Rosy 5 year model risk: 1.8%. NCI Lifetime model risk: 5.6%. Technique: Method: Targeted. Prior Study Comparison: 04/12/2018 Bilateral Screening Mammogram, [facility]. 12/25/2021 Bilateral MG 3D screening mammo w/cad, [facility]. 09/07/2023 Bilateral MG 3D screening mammo w/cad, [facility]. Findings: The axilla of the left breast was scanned. Hypoechoic subcutaneous lesion noted measuring 2.1 x 1.7 x 1.1 cm with a tract going to the skin surface is felt to reflect a sebaceous cyst. Managed clinically. No suspicious masses seen.. Overall Assessment: Benign, BI-RAD 2 Management: Screening Mammogram of both breasts in 1 year. A clinical breast exam by your physician is recommended on an annual basis and results should be correlated with mammographic findings. This exam should not preclude additional follow-up of suspicious palpable abnormalities. Results were given to the patient verbally at the time of exam. Electronically signed and approved by: Stuart Wood M.D. Radiologis
== END | disposition home or self-care (01) ==
LOC: RADUSWWP 08:24
PROVIDERS: ATTEND Family Medicine
DX: R92.8 Other abnormal and inconclusive findings on diagnostic imaging of breast (principal); Z78.0 Asymptomatic menopausal state

== ENCOUNTER → 2024-02-09 | Outpatient (CLI) | payer MEDICARE, BC ==
[2024-02-10 03:16] LABS: Estradiol <20.0 pg/mL; Potassium 4.4 mmol/L (3.5-5.5); Testosterone <10.00 ng/dL (7.00-45.62)
[2024-02-10 03:26] LABS: Follicle Stimulating Hormone 62.6 mIU/mL
== END | disposition home or self-care (01) ==
LOC: LABWHC1 13:10
PROVIDERS: ATTEND Physician Assistant Medical
DX: L64.8 Other androgenic alopecia
CPT/HCPCS: 36415; 82157; 82533; 82670; 83001; 83002; 84132; 84146; 84403

== ENCOUNTER → 2024-10-16 | Outpatient (CLI) | payer MEDICARE ==
--- NOTE | 2024-10-17 07:30 | MM ---
Reason for Exam: Screening (asymptomatic). Last mammogram was performed 1 year(s) and 1 month(s) ago. Patient History: Menarche at age 11. First Full-Term at age 19. Postmenopausal. 10/11/2013, MG stereo VAD BX LT - 2 on the Left side. Risk Values: Rosy 5 year model risk: 1.8%. NCI Lifetime model risk: 5.3%. Prior Study Comparison: 04/12/2018 Bilateral Screening Mammogram, [facility]. 12/25/2021 Bilateral MG 3D screening mammo w/cad, [facility]. 09/07/2023 Bilateral MG 3D screening mammo w/cad, [facility]. Tissue Density: There are scattered areas of fibroglandular density. Findings: Analyzed By CAD. Left breast biopsy clip. Right breast: Stable benign mass. There is no suspicious group of microcalcifications or new suspicious mass. Left breast: Decreased size of left axillary lymph node. There is no suspicious group of microcalcifications or new suspicious mass. Overall Assessment: Benign, BI-RAD 2 Management: Screening Mammogram of both breasts in [address] [facility] will attempt to contact patient to return for supplemental views and ultrasound if indicated. Patient should continue monthly self-breast exams. A clinical breast exam by your physician is recommended on an annual basis. This exam should not preclude additional follow-up of suspicious palpable abnormalities. Note on Rosy scores and lifetime risk: 1. A Rosy score greater than 3% is considered moderate risk. If this is the case, consider specialist referral to assess eligibility for a risk reducing agent. 2. If overall lifetime risk for the development of breast cancer is 20% or higher, the patient may qualify for future screening with alternating mammogram and breast MRI. [facility], , 10/17/2024 7:27 AM. Electronically signed and approved by: Angelo Santos DO
--- NOTE | 2024-10-18 12:09 | BD ---
EXAMINATION TYPE: Axial Bone Density DATE OF EXAM: 10/16/2024 CLINICAL HISTORY: 68 years old Female. ICD-10 CODE: Z78.0 POST MENOPAUSAL , Additional History: Height: 5 ft 6 1/2 in Weight: 226 FRAX RISK QUESTIONS: Alcohol (3 or more units per day): no Family History (Parent hip fracture): no Glucocorticoids (More than 3mos): no (Ex: prednisone, prednisolone, methylprednisolone, dexamethasone, and hydrocortisone). History of Fracture in Adulthood: no Secondary Osteoporosis: 1. Type 1 Diabetes: type 2 2. Hyperthyroidism: goiters 3. Menopause before 45: no 4. Malnutrition: no 5. Chronic liver disease: no Rheumatoid Arthritis: no Current Tobacco Use: no RISK FACTORS HISTORY OF: Surgery to Spine/Hip(right/left)/Wrist (right/left): no MEDICATIONS: Thyroid Medications: none Osteoporosis Medications: none EXAM MEASUREMENTS: Bone mineral densitometry was performed using the [employer] System. Bone mineral density as measured about the Lumbar spine is: ----- L1-L4(G/cm2): 1.393 T Score Values are as follows: ----- L1: 0.9 ----- L2: 1.6 ----- L3: 2.2 ----- L4: 2.3 ----- L1-L4: 1.8 Z Score Values are as follows: ----- L1: 1.4 ----- L2: 2.1 ----- L3: 2.7 ----- L4: 2.8 ----- L1-L4: 2.3 Bone mineral density has: increased 6.8 % since study of: 2021 Bone mineral density about the R hip (g/cm2): 0.856 Bone mineral density about the L hip (g/cm2): 0.813 T Score values are as follows: -----R Neck: -1.3 -----L Neck: -1.6 -----R Total: -0.4 -----L Total: -0.7 Z Score values are as follows: -----R Neck: -0.3 -----L Neck: -0.6 -----R Total: 0.3 -----L Total: 0.0 Bone mineral density has: decreased -5.4 % since study of: 2021 FRAX%s: The graph provided illustrates a 9.7 % chance for a major osteoporotic fx and a 1.5 % chance for the hips probability for fx in 10 years time. IMPRESSION: Osteopenia (T Score between -2.5 and -1). There is slightly increased risk of fracture and the patient may be considered for treatment. Re-Screen 2-5 years. NOTE: T-SCORE=SD OF THE YOUNG ADULT MEAN. [facility], , 10/18/2024 12:07 PM
== END | disposition home or self-care (01) ==
LOC: RADMAMWWP 15:16
PROVIDERS: ATTEND Family Medicine
DX: Z12.31 Encounter for screening mammogram for malignant neoplasm of breast (principal); R92.323 Mammographic fibroglandular density, bilateral breasts; M85.89 Other specified disorders of bone density and structure, multiple sites; Z78.0 Asymptomatic menopausal state
CPT/HCPCS: 77063; 77067; 77080